=== PATIENT | female | born 1980 | race Two or more races ===

== ENCOUNTER 2017-08-01 13:44 | Outpatient (CLI) | payer OTHER ==
--- NOTE | 2017-08-01 14:46 | Diagnostic Imaging Report ---
Indication: Cough Technique: 2 views of the chest Comparison: None Findings: Lungs and pleural spaces are clear. The heart size is normal. The bones are unremarkable. Impression: Negative
== END 2017-08-01 15:44 | disposition home or self-care (01) ==
LOC: RAD 13:44
DX: Z01.818 Encounter for other preprocedural examination (principal); Z01.812 Encounter for preprocedural laboratory examination
CPT/HCPCS: 71046